=== PATIENT | female | born 1965 | race Caucasian/White ===

== ENCOUNTER 2021-09-29 13:02 | Emergency (ER) | payer MEDICARE ==
[~2021-09-29] VITALS: Ht 175.3 cm; Wt 113.0 kg
[2021-09-29] MEDS ORDERED: MORPHINE SULFATE 2 MG/ML INJ. IVP ONE (13:45)
[2021-09-29] MEDS ORDERED: ONDANSETRON PF 4 MG/2 ML VIAL. IVP ONE (13:45)
[2021-09-29] MEDS ORDERED: IV NORMAL SALINE 1000ML BAG 1,000 ML IV ONE (13:45)
[2021-09-29 14:04] LABS: BILIRUBIN,URINE NEGATIVE (NEG); CLARITY,URINE CLEAR; COLOR,URINE YELLOW; NITRITE,URINE NEGATIVE (NEG); PH,URINE 6.5 (<5.0-8.0); PROTEIN,URINE NEGATIVE (NEG-TRACE); UROBILINOGEN,URINE 0.2 mg/dL (0.2 mg/dL)
[2021-09-29 14:16] LABS: BACTERIA,URINE 0 /HPF (0-FEW); WBC,URINE 0 /HPF (0-4)
[2021-09-29 14:21] LABS: BASO # 0.1 x10^3/uL (0.0-0.2); BASO % 1 % (0-3); EOS # 0.4 x10^3/uL (0.0-0.7); EOS % 4 % (0-3); HEMATOCRIT 37.4 % (36.0-47.0); HEMOGLOBIN 12.4 g/dL (12.0-15.5); LYMPH # 1.5 x10^3/uL (1.0-4.8); LYMPH % 17 % (24-48); MEAN CORPUSCULAR HEMOGLOBIN 29 pg (25-35); MEAN CORPUSCULAR HGB CONC 33 g/dL (31-37); MEAN CORPUSCULAR VOLUME 87 fL (79-100); MONO # 0.7 x10^3/uL (0.0-1.1); MONO % 7 % (0-9); NEUT # 6.4 x10^3/uL (1.8-7.7); NEUT % 71 % (31-73); PLATELET COUNT 304 x10^3/uL (140-400); RED BLOOD COUNT 4.28 x10^6/uL (3.50-5.40); RED CELL DISTRIBUTION WIDTH 13.1 % (11.5-14.5)
[2021-09-29] MEDS ORDERED: CONTRAST GIVEN. MC PRN (14:30)
[2021-09-29] MEDS ORDERED: IOHEXOL 300 MG/ML 100ML VIAL. IV ONE (14:30)
[2021-09-29 14:39] LABS: CALCIUM 8.5 mg/dL (8.5-10.1); CREATININE 0.8 mg/dL (0.6-1.0); GFR 73.9; POTASSIUM 3.6 mmol/L (3.5-5.1)
[2021-09-29 14:47] LABS: ALBUMIN 3.7 g/dL (3.4-5.0); ALBUMIN/GLOBULIN RATIO 1.1 (1.0-1.7); TOTAL BILIRUBIN 0.5 mg/dL (0.2-1.0); TOTAL PROTEIN 7.2 g/dL (6.4-8.2)
--- NOTE | 2021-09-29 15:14 | PHYS DOC ---
Past Medical History Past Medical History: Anxiety, Constipation, Hypertension Past Surgical History: Cholecystectomy, Hysterectomy, Tubal ligation Smoking Status: Former Smoker Alcohol Use: None General Adult EDM: Chief Complaint: ABDOMINAL PAIN HPI: HPI: Patient is a 55 year old female with a history of anxiety, hypertension, constipation, who presents to the ED today complaining of a sharp intermittent left lower quadrant abdominal pain, symptoms began yesterday. Patient denies any nausea, vomiting or diarrhea. Reports last bowel movement was this morning and small. She states she is more concerned she could have diverticulitis, she states several family members have diverticulitis. Patient denies anything specifically exacerbating or relieving her symptoms. Review of Systems: Review of Systems: Constitutional: Denies fever or chills. [] Eyes: Denies change in visual acuity. [] HENT: Denies nasal congestion or sore throat. [] Respiratory: Denies cough or shortness of breath. [] Cardiovascular: Denies chest pain or edema. [] GI: Reports left lower quadrant abdominal pain, denies nausea, vomiting, bloody stools or diarrhea. [] : Denies dysuria. [] Musculoskeletal: Denies back pain or joint pain. [] Integument: Denies rash. [] Neurologic: Denies headache, focal weakness or sensory changes. [] [] Psychiatric: Denies depression or anxiety. [] Heart Score: C/O Chest Pain: N/A Risk Factors: Risk Factors: DM, Current or recent (<one month) smoker, HTN, HLP, family history of CAD, obesity. Risk Scores: Score 0 - 3: 2.5% MACE over next 6 weeks - Discharge Home Score 4 - 6: 20.3% MACE over next 6 weeks - Admit for Clinical Observation Score 7 - 10: 72.7% MACE over next 6 weeks - Early Invasive Strategies Current Medications: Current Medications Medications (Trade) Dose Ordered Sig/Mel Start Time Stop Time Status Last Admin Dose Admin Info (CONTRAST GIVEN -- Rx MONITORING) 1 each PRN DAILY PRN 09/29/21 14:30 10/01/21 14:29 Iohexol (Omnipaque 300 Mg/ml) 75 ml 1X ONCE 09/29/21 14:30 09/29/21 14:31 DC 09/29/21 14:58 75 ML Morphine Sulfate (Morphine Sulfate) 2 mg 1X ONCE 09/29/21 13:45 09/29/21 13:47 DC 09/29/21 14:14 2 MG Ondansetron HCl (Zofran) 4 mg 1X ONCE 09/29/21 13:45 09/29/21 13:47 DC 09/29/21 14:14 4 MG Sodium Chloride 1,000 ml @ 1,000 mls/hr 1X ONCE 09/29/21 13:45 09/29/21 14:44 DC 09/29/21 14:14 1,000 MLS/HR Allergies: Allergies: Allergies Coded Allergies Type Severity Reaction Last Updated Verified Sulfa (Sulfonamide Antibiotics) Allergy Intermediate UNKNOWN 09/29/21 Yes azithromycin Allergy Intermediate 09/29/21 Yes cortisone Allergy Intermediate UNKNOWN 09/29/21 Yes diphenhydramine Allergy Intermediate UNKNOWN 09/29/21 Yes fluticasone Allergy Intermediate UNKNOWN 09/29/21 Yes Physical Exam: PE: Constitutional: Well developed, well nourished, no acute distress, non-toxic appearance. [] HENT: Normocephalic, atraumatic, bilateral external ears normal, oropharynx moist, no oral exudates, nose normal. [] Eyes: PERRLA, EOMI, conjunctiva normal, no discharge. [] Neck: Normal range of motion, no tenderness, supple, no stridor. [] Cardiovascular:Heart rate regular rhythm, no murmur [] Lungs & Thorax: Bilateral breath sounds clear to auscultation [] Abdomen: Bowel sounds normal, soft, no right upper quadrant or right lower quadrant tenderness, mild tenderness to the left lower quadrant, no left upper quadrant tenderness, no masses, no pulsatile masses. [] Skin: Warm, dry, no erythema, no rash. [] Back: No tenderness, no CVA tenderness. [] Extremities: No tenderness, no cyanosis, no clubbing, ROM intact, no edema. [] Neurologic: Alert and oriented X 3, normal motor function, normal sensory function, no focal deficits noted. [] Psychologic: Affect normal, judgement normal, mood normal. [] Current Patient Data: Labs: Laboratory Tests Test 09/29/21 13:30 09/29/21 14:04 Urine Collection Type Unknown Urine Color Yellow Urine Clarity Clear Urine pH 6.5 (<5.0-8.0) Urine Specific [place] 1.010 (1.000-1.030) Urine Protein Negative mg/dL (NEG-TRACE) Urine Glucose (UA) Negative mg/dL (NEG) Urine Ketones (Stick) Negative mg/dL (NEG) Urine Blood Trace (NEG) Urine Nitrite Negative (NEG) Urine Bilirubin Negative (NEG) Urine Urobilinogen Dipstick 0.2 mg/dL (0.2 mg/dL) Urine Leukocyte Esterase Negative (NEG) Urine RBC 1-2 /HPF (0-2) Urine WBC 0 /HPF (0-4) Urine Squamous Epithelial Cells Mod /LPF Urine Bacteria 0 /HPF (0-FEW) White Blood Count 9.0 x10^3/uL (4.0-11.0) Red Blood Count 4.28 x10^6/uL (3.50-5.40) Hemoglobin 12.4 g/dL (12.0-15.5) Hematocrit 37.4 % (36.0-47.0) Mean Corpuscular Volume 87 fL (79-100) Mean Corpuscular Hemoglobin 29 pg (25-35) Mean Corpuscular Hemoglobin Concent 33 g/dL (31-37) Red Cell Distribution Width 13.1 % (11.5-14.5) Platelet Count 304 x10^3/uL (140-400) Neutrophils (%) (Auto) 71 % (31-73) Lymphocytes (%) (Auto) 17 % (24-48) L Monocytes (%) (Auto) 7 % (0-9) Eosinophils (%) (Auto) 4 % (0-3) H Basophils (%) (Auto) 1 % (0-3) Neutrophils # (Auto) 6.4 x10^3/uL (1.8-7.7) Lymphocytes # (Auto) 1.5 x10^3/uL (1.0-4.8) Monocytes # (Auto) 0.7 x10^3/uL (0.0-1.1) Eosinophils # (Auto) 0.4 x10^3/uL (0.0-0.7) Basophils # (Auto) 0.1 x10^3/uL (0.0-0.2) Sodium Level 139 mmol/L (136-145) Potassium Level 3.6 mmol/L (3.5-5.1) Chloride Level 101 mmol/L (98-107) Carbon Dioxide Level 30 mmol/L (21-32) Anion Gap 8 (6-14) Blood Urea Nitrogen 12 mg/dL (7-20) Creatinine 0.8 mg/dL (0.6-1.0) Estimated GFR (Cockcroft-Gault) 73.9 BUN/Creatinine Ratio 15 (6-20) Glucose Level 83 mg/dL (70-99) Calcium Level 8.5 mg/dL (8.5-10.1) Total Bilirubin 0.5 mg/dL (0.2-1.0) Aspartate Amino Transferase (AST) 16 U/L (15-37) Alanine Aminotransferase (ALT) 35 U/L (14-59) Alkaline Phosphatase 61 U/L (46-116) Total Protein 7.2 g/dL (6.4-8.2) Albumin 3.7 g/dL (3.4-5.0) Albumin/Globulin Ratio 1.1 (1.0-1.7) Lipase 72 U/L (73-393) L Laboratory Tests 09/29/21 14:04 Laboratory Tests 09/29/21 14:04 Vital Signs: Vital Signs Date Time Temp Pulse Resp B/P (MAP) Pulse Ox O2 Delivery O2 Flow Rate FiO2 09/29/21 14:38 78 173/77 (109) 100 Room Air 09/29/21 14:14 17 09/29/21 13:27 97.8 97.8 EKG: EKG: [] Radiology/Procedures: Radiology/Procedures: []PROCEDURE: CT ABD PELV W/ IV CONTRST ONLY EXAM: CT Abdomen and Pelvis with IV contrast CLINICAL HISTORY: LLQ pain COMPARISON: none TECHNIQUE: Helical CT of the abdomen and pelvis was performed following the administration of intravenous contrast. Axial, coronal and sagittal reformatted images were generated. PQRS compliance statement - One or more of the following individualized dose reduction techniques were utilized for this study: 1. Automated exposure control 2. Adjustment of the mA and/or kV according to patient size 3. Use of iterative reconstruction technique FINDINGS: Lower Chest: Linear opacities lung bases likely scarring/atelectasis. Abdomen and Pelvis: Hepatic hypoattenuation, fatty liver. Accounting for postcholecystectomy change, no biliary ductal dilatation. Pancreas, spleen and adrenal glands are unremarkable. Symmetric nephrograms. No focal renal lesion. No hydronephrosis. No hydronephrosis. No hydroureter. Bladder is unremarkable. Moderate colonic stool content is seen. There is infiltration about colonic diverticula in the distal descending colon. No small or large bowel dilatation. No bowel obstruction. Appendix is normal. Aorta is normal in caliber with atherosclerotic calcifications. No abdominal or pelvic lymphadenopathy. No free or loculated abdominal or pelvic collection. No free intraperitoneal gas. Bones: No aggressive osseous lesion. Mild L3-4, L4-5 and L5-S1 disc height loss. IMPRESSION: Acute left colon diverticulitis without evidence for perforation or free intraperitoneal gas. Hepatic hypoattenuation, fatty liver. Electronically signed by: Frantz Diop MD (09/29/2021 3:13 PM) [id number] DICTATED and SIGNED BY: FRANTZ DIOP MD DATE: 09/29/21 [id number] Course & Med Decision Making: Course & Med Decision Making Pertinent Labs and Imaging studies reviewed. (See chart for details) This is a 55-year-old female patient presenting to the ED today complaining of left lower quadrant pain, symptoms began yesterday. Patient is concerned she has diverticulitis and would like a diverticulitis work-up. She has a family history of diverticulitis but not personal history. Vitals in the ED temperature 97.8, heart rate 82, respiration 18 on room air, blood pressure 170/78, O2 sats 100% on room air. Patient's blood pressure has consistently stated in the 170s over 70s, she reports history of hypertension and is on medications, patient denies any chest pain, shortness of breath or headache, encourage her to check her blood pressures at home, if they stay high she needs to inform the PCP. CBC CMP lipase UA-negative for any acute findings CT of the abdomen and pelvis is noted for acute diverticulitis with no perforation or abscess Discharged on Augmentin. Follow-up with GI and PCP. She states her PCP was in the process of arranging a colonoscopy for her. Encouraged her to inform the PCP she has diverticulitis so they can follow-up Dragon Disclaimer: Evan Disclaimer: This electronic medical record was generated, in whole or in part, using a voice recognition dictation system. Departure Departure Impression: Primary Impression: Acute diverticulitis Disposition: HOME / SELF CARE / HOMELESS Condition: STABLE Referrals: GRACIELA PENA MD (PCP) followup next week Patient Instructions: Diverticulitis, [id number] Additional Instructions: You were evaluated in the emergency room and noted to have diverticulitis. Please take the prescribed antibiotics until completed. Please ensure you let your primary care doctor know you have diverticulitis so they can arrange for a colonoscopy through GI. Come back to the ED at any point symptoms worsen. Your blood pressure is also running high. Ensure you are taking your medicine, if the blood pressure continues to be high next week, let your primary care doctor know Scripts Ondansetron (ONDANSETRON ODT) 4 Mg Tab.rapdis 1 TAB PO PRN Q6-8HRS, #16 TAB Prov: SHAWNA KOCH CLINICAL ASST 09/29/21 Hydrocodone Bit/Acetaminophen (HYDROCODONE-APAP 5-325 ) 1 Tab Tablet 1 TAB PO PRN Q6HRS PRN for PAIN, #14 TAB 0 Refills Prov: SHAWNA KOCH CLINICAL ASST 09/29/21 Amoxicillin/Potassium Clav (AUGMENTIN 875-125 TABLET) 1 Each Tablet 1 TAB PO BID for 10 Days, #20 TAB 0 Refills Prov: SHAWNA KOCH CLINICAL ASST 09/29/21 SHAWNA KOCH CLINICAL ASST Sep 29, 2021 15:14
[2021-09-29] MEDS ORDERED: AMOXICILLIN/K CLAV 875/125MG TABLET. PO ONE (16:00)
[2021-09-29] MEDS ORDERED: HYDR-2761 PO (16:00)
[2021-09-29] MEDS ORDERED: ONDA4TAB12 PO (16:00)
[2021-09-29] MEDS ORDERED: AMOX1TAB61 PO (16:00)
[2021-09-29 16:08] VITALS: BP 161/80
== END 2021-09-29 16:20 | disposition home or self-care (01) ==
LOC: ER 13:02
DX: K57.92 Diverticulitis of intestine, part unspecified, without perforation or abscess without bleeding (principal); I10 Essential (primary) hypertension; Z87.891 Personal history of nicotine dependence; Z90.49 Acquired absence of other specified parts of digestive tract; Z90.710 Acquired absence of both cervix and uterus; Z98.51 Tubal ligation status; Z88.1 Allergy status to other antibiotic agents; Z88.2 Allergy status to sulfonamides; Z88.5 Allergy status to narcotic agent; Z88.8 Allergy status to other drugs, medicaments and biological substances
CPT/HCPCS: 36415; 74177; 80053; 81001; 83690; 85025; 96361; 96374; 96375; 99284; J2270; J2405; J7030; Q9967

== ENCOUNTER 2021-10-15 16:00 | Emergency (ER) | payer MEDICARE ==
[~2021-10-15] VITALS: Ht 175.3 cm; Wt 112.8 kg
[~2021-10-15 16:00] MED LIST: AMOX1TAB61 PO; HYDR-2761 PO; ONDA4TAB12 PO
[2021-10-15] MEDS ORDERED: KETOROLAC 30 MG/ML VIAL. ONE (16:44)
[2021-10-15] MEDS ORDERED: IV NORMAL SALINE 1000ML BAG 1,000 ML IV ONE (16:45)
[2021-10-15] MEDS ORDERED: KETOROLAC 15 MG/ML VIAL. IVP ONE (16:45)
[2021-10-15] MEDS ORDERED: ONDANSETRON PF 4 MG/2 ML VIAL. IVP ONE (16:45)
[2021-10-15] MEDS ORDERED: fentaNYL PF VIAL 100 MCG/2 ML VIAL IVP ONE (16:45)
[2021-10-15 16:50] LABS: BASO % 0 % (0-3); EOS # 0.5 x10^3/uL (0.0-0.7); EOS % 5 % (0-3); HEMATOCRIT 37.9 % (36.0-47.0); HEMOGLOBIN 12.5 g/dL (12.0-15.5); LYMPH # 2.9 x10^3/uL (1.0-4.8); LYMPH % 34 % (24-48); MEAN CORPUSCULAR HEMOGLOBIN 29 pg (25-35); MEAN CORPUSCULAR HGB CONC 33 g/dL (31-37); MEAN CORPUSCULAR VOLUME 87 fL (79-100); MONO # 0.6 x10^3/uL (0.0-1.1); MONO % 7 % (0-9); NEUT # 4.6 x10^3/uL (1.8-7.7); NEUT % 54 % (31-73); PLATELET COUNT 356 x10^3/uL (140-400); RED BLOOD COUNT 4.35 x10^6/uL (3.50-5.40); RED CELL DISTRIBUTION WIDTH 12.9 % (11.5-14.5); WHITE BLOOD COUNT 8.5 x10^3/uL (4.0-11.0)
[2021-10-15 16:52] LABS: BILIRUBIN,URINE NEGATIVE (NEG); CLARITY,URINE CLEAR; COLOR,URINE YELLOW; NITRITE,URINE NEGATIVE (NEG); PROTEIN,URINE NEGATIVE (NEG-TRACE); UROBILINOGEN,URINE 0.2 mg/dL (0.2 mg/dL)
[2021-10-15 17:06] LABS: WBC,URINE RARE /HPF (0-4)
[2021-10-15 17:07] LABS: BACTERIA,URINE 0 /HPF (0-FEW)
[2021-10-15] MEDS ORDERED: KETOROLAC 30 MG/ML VIAL. IVP ONE (17:15)
[2021-10-15 17:47] LABS: CALCIUM 8.2 mg/dL (8.5-10.1); CREATININE 0.8 mg/dL (0.6-1.0); GFR 73.9; POTASSIUM 3.6 mmol/L (3.5-5.1)
[2021-10-15 17:52] LABS: ALBUMIN 3.4 g/dL (3.4-5.0); ALBUMIN/GLOBULIN RATIO 0.9 (1.0-1.7); MAGNESIUM 2.1 mg/dL (1.8-2.4); TOTAL BILIRUBIN 0.2 mg/dL (0.2-1.0); TOTAL PROTEIN 7.2 g/dL (6.4-8.2)
--- NOTE | 2021-10-15 17:58 | PHYS DOC ---
Past Medical History Past Medical History: Anxiety, Constipation, Hypertension Past Surgical History: Cholecystectomy, Hysterectomy, Tubal ligation Smoking Status: Former Smoker Alcohol Use: None General Adult EDM: Chief Complaint: FLANK PAIN HPI: HPI: Patient is a 55 year old female who presents with right-sided flank pain that radiates into lower right side abdomen. Patient reports some nausea. Denies taking anything for pain prior to arrival. Patient denies pain with urination but feels like she has pressure when she urinates. Denies history of kidney stones. History of anxiety, constipation, hypertension. Review of Systems: Review of Systems: ROS At least 10 ROS systems have been reviewed and are negative except as documented in the HPI. Heart Score: C/O Chest Pain: No Risk Factors: Risk Factors: DM, Current or recent (<one month) smoker, HTN, HLP, family history of CAD, obesity. Risk Scores: Score 0 - 3: 2.5% MACE over next 6 weeks - Discharge Home Score 4 - 6: 20.3% MACE over next 6 weeks - Admit for Clinical Observation Score 7 - 10: 72.7% MACE over next 6 weeks - Early Invasive Strategies Current Medications: Current Medications Medications (Trade) Dose Ordered Sig/Mel Start Time Stop Time Status Last Admin Dose Admin Fentanyl Citrate (Fentanyl 2ml Vial) 50 mcg 1X ONCE 10/15/21 16:45 10/15/21 16:46 Cancel Ketorolac Tromethamine (Toradol 15mg Vial) 15 mg 1X ONCE 10/15/21 16:45 10/15/21 16:46 DC Ketorolac Tromethamine (Toradol 30mg Vial) 30 mg 1X ONCE 10/15/21 17:15 10/15/21 17:16 DC 10/15/21 17:12 30 MG Ondansetron HCl (Zofran) 4 mg 1X ONCE 10/15/21 16:45 10/15/21 16:46 DC 10/15/21 16:48 4 MG Sodium Chloride 1,000 ml @ 1,000 mls/hr 1X ONCE 10/15/21 16:45 10/15/21 17:44 10/15/21 16:46 1,000 MLS/HR Allergies: Allergies: Allergies Coded Allergies Type Severity Reaction Last Updated Verified Sulfa (Sulfonamide Antibiotics) Allergy Intermediate UNKNOWN 09/29/21 Yes azithromycin Allergy Intermediate 09/29/21 Yes cortisone Allergy Intermediate UNKNOWN 09/29/21 Yes diphenhydramine Allergy Intermediate UNKNOWN 09/29/21 Yes fluticasone Allergy Intermediate UNKNOWN 09/29/21 Yes Physical Exam: PE: Constitutional: Well developed, well nourished, no acute distress, non-toxic appearance. [] HENT: Normocephalic, atraumatic, bilateral external ears normal, oropharynx moist, no oral exudates, nose normal. [] Eyes: PERRLA, EOMI, conjunctiva normal, no discharge. [] Neck: Normal range of motion, no tenderness, supple, no stridor. [] Cardiovascular:Heart rate regular rhythm, no murmur [] Lungs & Thorax: Bilateral breath sounds clear to auscultation [] Abdomen: Bowel sounds normal, soft, right lower quadrant tenderness, no masses, no pulsatile masses. [] Skin: Warm, dry, no erythema, no rash. [] Back: No tenderness, right-sided CVA tenderness. [] Extremities: No tenderness, no cyanosis, no clubbing, ROM intact, no edema. [] Neurologic: Alert and oriented X 3, normal motor function, normal sensory function, no focal deficits noted. [] Psychologic: Affect normal, judgement normal, mood normal. [] Current Patient Data: Labs: Laboratory Tests Test 10/15/21 16:08 10/15/21 16:11 Urine Collection Type Unknown Urine Color Yellow Urine Clarity Clear Urine pH 6.0 (<5.0-8.0) Urine Specific [place] 1.020 (1.000-1.030) Urine Protein Negative mg/dL (NEG-TRACE) Urine Glucose (UA) Negative mg/dL (NEG) Urine Ketones (Stick) Negative mg/dL (NEG) Urine Blood Small (NEG) Urine Nitrite Negative (NEG) Urine Bilirubin Negative (NEG) Urine Urobilinogen Dipstick 0.2 mg/dL (0.2 mg/dL) Urine Leukocyte Esterase Negative (NEG) Urine RBC 6-10 /HPF (0-2) Urine WBC Rare /HPF (0-4) Urine Squamous Epithelial Cells Many /LPF Urine Bacteria 0 /HPF (0-FEW) Urine Mucus Mod /LPF White Blood Count 8.5 x10^3/uL (4.0-11.0) Red Blood Count 4.35 x10^6/uL (3.50-5.40) Hemoglobin 12.5 g/dL (12.0-15.5) Hematocrit 37.9 % (36.0-47.0) Mean Corpuscular Volume 87 fL (79-100) Mean Corpuscular Hemoglobin 29 pg (25-35) Mean Corpuscular Hemoglobin Concent 33 g/dL (31-37) Red Cell Distribution Width 12.9 % (11.5-14.5) Platelet Count 356 x10^3/uL (140-400) Neutrophils (%) (Auto) 54 % (31-73) Lymphocytes (%) (Auto) 34 % (24-48) Monocytes (%) (Auto) 7 % (0-9) Eosinophils (%) (Auto) 5 % (0-3) H Basophils (%) (Auto) 0 % (0-3) Neutrophils # (Auto) 4.6 x10^3/uL (1.8-7.7) Lymphocytes # (Auto) 2.9 x10^3/uL (1.0-4.8) Monocytes # (Auto) 0.6 x10^3/uL (0.0-1.1) Eosinophils # (Auto) 0.5 x10^3/uL (0.0-0.7) Basophils # (Auto) 0.0 x10^3/uL (0.0-0.2) Laboratory Tests 10/15/21 16:11 EKG: EKG: Sinus rhythm. Heart rate 67 bpm. [] Radiology/Procedures: Radiology/Procedures: []CT abdomen pelvis without contrast. HISTORY: Right flank pain CT abdomen pelvis was done without contrast. Lung bases are clear. There is no effusion. A liver lesion is not identified. The patient's had a cholecystectomy. Spleen and adrenal glands are normal. Pancreas is normal. There is no calculus or hydronephrosis in the left kidney. There is mild right hydronephrosis. Right ureter is mildly dilated. There is a 3 mm calculus at the right ureterovesical junction or just into the bladder. The bladder is mildly distended. Bowel pattern the abdomen is normal. Appendix is normal. There is no mild diverticulosis without diverticulitis. IMPRESSION: 1. 3 mm calculus at the right ureterovesical junction with mild right hyd ronephrosis. Course & Med Decision Making: Course & Med Decision Making Pertinent Labs and Imaging studies reviewed. (See chart for details) [] 55-year-old female presents with right-sided flank pain that radiates into her right lower abdomen. Denies dysuria. Afebrile. Work-up in ER consist of EKG, urinalysis, blood work, CT abdomen and pelvis. Pain and nausea treated in the ER. Patient given normal saline bolus. Patient states that her pain has improved. UA positive for blood. Negative for leukocytes and nitrates. Patient reports that pain has improved after medication was administered. CT abdomen and pelvis ordered to rule out kidney stone. CT abdomen pelvis shows 3 mm calculus at the right ureterovesical junction with mild right hydronephrosis. Discussed results with patient. I am sending patient home with pain medication, nausea medication, along with Flomax and a strainer to use when she urinates. Discussed return precautions with patient. Patient states that she understands discharge instructions. Patient states that she understands discharge instructions. Advised patient to call her PCP tomorrow to make a follow-up appointment. Evan Disclaimer: Evan Disclaimer: This electronic medical record was generated, in whole or in part, using a voice recognition dictation system. Departure Departure Impression: Primary Impression: Hydronephrosis, right Disposition: 01 HOME / SELF CARE / HOMELESS Condition: STABLE Referrals: GRACIELA PENA MD (PCP) Patient Instructions: Hydronephrosis Additional Instructions: You were seen in the emergency room for right-sided flank pain along with right lower abdominal pain. Your CT scan scan shows right hydronephrosis. You have a 3 mm stone. I am sending you home with pain medication, along with nausea medication and Flomax. Please return to emergency room with worsening symptoms or concerns. EMERGENCY DEPARTMENT GENERAL DISCHARGE INSTRUCTIONS Thank you for coming to [facility] Emergency Department (ED) today and trusting us with you care. We trust that you had a positive experience in our Emergency Department. If you wish to speak to the department management, you may call the Director at [phone]. YOUR FOLLOW UP INSTRUCTIONS ARE FOLLOWS: 1. Do you have a private Doctor? If you do not have a private doctor, please ask for a resource list of physicians or clinics that may be able to assist you with follow up care. 2. The Emergency Physicain has interpreted your x-rays. The X-Ray specialist will also review them. If there is a change in the findings, you will be notified in 48 hours when at all possible. 3. A lab test or culture has been done, your results will be reviewed and you will be notified if you need a change in treatment. ADDITIONAL INSTRUCTIONS AND INFORMATION: 1. Your care today has been supervised by a physician who is specially trained in emergency care. Many problems require more than one evaluation for a complete diagnosis and treatment. We recommend that you schedule your follow up appointment as recommended to ensure complete treatment of you illness or injury. If you are unable to obtain follow up care and continue to have a problem, or if your condition worsens, we recommend that you return to the ED. 2. We are not able to safely determine your condition over the phone nor are we able to give sound medical advice over the phone. For these safety reasons, if you call for medical advice we will ask you to come to the ED for further evaluation. 3. If you have any questions regarding these discharge instructions please call the ED at [phone]. SAFETY INFORMATION: In the interest of safety, wellness, and injury prevention; we encourage you to wear your sealbelt, if you smoke; quite smoking, and we encourage family to use a protective helmet for bicycling and other sporting events that present an increased risk for head injury. IF YOUR SYMPTOMS WORSEN OR NEW SYMPTOMS DEVELOP, OR YOU HAVE CONCERNS ABOUT YOUR CONDITION; OR IF YOUR CONDITION WORSENS WHILE YOU ARE WAITING FOR YOUR FOLLOW UP APPOINTMENT; EITHER CONTACT YOUR PRIMARY CARE DOCTOR, THE PHYSICIAN WHOSE NAME AND NUMBER YOU WERE GIVEN, OR RETURN TO THE ED IMMEDIATELY. Scripts Hydrocodone Bit/Acetaminophen (HYDROCODONE-APAP 5-325 ) 1 Tab Tablet 1 TAB PO PRN Q6HRS PRN for PAIN for 3 Days, #10 TAB 0 Refills Prov: VAHID ASTUDILLO [employer] PROGRAM MANAGER 10/15/21 Tamsulosin Hcl (FLOMAX) 0.4 Mg Cap.er.24h 1 CAP PO DAILY for kidney stone for 7 Days, #7 CAP 0 Refills Prov: VAHID ASTUDILLO [employer] PROGRAM MANAGER 10/15/21 VAHID ASTUDILLO APRN Oct 15, 2021 17:58
--- NOTE | 2021-10-15 18:17 | EKG ---
[facility] [address] [place] [address] Test Date: 2021-10-15 Test Time: 17:15:07 Pat Name: MAL BARRGIA Department: Room: Gender: F Software Engineering Analyst: : [id number] Requested By: VAHID ASTUDILLO Order Number: [id number] Reading MD: Measurements Intervals [place] Rate: 67 P: 56 [place]: 144 QRS: -2 QRSD: 86 T: 62 QT: 452 QTc: 481 Interpretive Statements SINUS RHYTHM LEFTWARD AXIS PROLONGED QT NO SPECIFIC ECG ABNORMALITIES RI6.02 No previous ECG available for comparison
--- NOTE | 2021-10-15 18:52 | RAD ---
CT abdomen pelvis without contrast. HISTORY: Right flank pain CT abdomen pelvis was done without contrast. Lung bases are clear. There is no effusion. A liver lesi on is not identified. The patient's had a cholecystectomy. Spleen and adrenal glands are normal. Panc reas is normal. There is no calculus or hydronephrosis in the left kidney. There is mild right hydron ephrosis. Right ureter is mildly dilated. There is a 3 mm calculus at the right ureterovesical juncti on or just into the bladder. The bladder is mildly distended. Bowel pattern the abdomen is normal. Ap pendix is normal. There is no mild diverticulosis without diverticulitis. IMPRESSION: 1. 3 mm calculus at the right ureterovesical junction with mild right hydronephrosis. PQRS Compliance Statement: One or more of the following individualized dose reduction techniques were utilized for this examinat ion: 1. Automated exposure control 2. Adjustment of the mA and/or kV according to patient size 3. Use of iterative reconstruction technique Electronically signed by: Aquilino Arzate MD (10/15/2021 6:50 PM) [facility]
[2021-10-15] MEDS ORDERED: HYDR-2761 PO (19:22)
[2021-10-15] MEDS ORDERED: TAMS0.4C97 PO (19:22)
[2021-10-15 20:30] VITALS: BP 151/68
== END 2021-10-15 20:31 | disposition home or self-care (01) ==
LOC: ER 16:00
DX: N13.2 Hydronephrosis with renal and ureteral calculous obstruction (principal); I10 Essential (primary) hypertension; Z87.891 Personal history of nicotine dependence; Z90.49 Acquired absence of other specified parts of digestive tract; Z90.710 Acquired absence of both cervix and uterus; Z98.51 Tubal ligation status; Z88.1 Allergy status to other antibiotic agents; Z88.5 Allergy status to narcotic agent; Z88.8 Allergy status to other drugs, medicaments and biological substances
CPT/HCPCS: 36415; 74176; 80053; 81001; 83690; 83735; 85025; 93005; 96361; 96374; 96375; 99284; J1885; J2405; J7030

== ENCOUNTER → 2021-11-23 | Day surgery (SDC) | payer MEDICARE ==
[~2021-11-23] VITALS: Ht 172.7 cm; Wt 111.8 kg
[~2021-11-23] MED LIST changes: +CETI10TA16 PO; +DULO60CA7 PO; +HYDROmorphone 2 MG/ML INJ. IVP PRN; +IV RINGERS,LACTATED 1000ML 1,000 ML IV SCH; +LIDOCAINE 2% PF 5 ML VIAL. ONE; +LOSA100T14 PO; +MORPHINE SULFATE 2 MG/ML INJ. IVP PRN; +PROCHLORPERAZINE 10 MG/2 ML VIAL. IVP PRN; +PROPOFOL 10 MG/ML (20ML) VIAL. IV ONE; +TAMS0.4C97 PO; +fentaNYL PF VIAL 100 MCG/2 ML VIAL IVP PRN
[2021-11-23 06:22] VITALS: BP 151/66
[2021-11-23 07:55] VITALS: BP 103/55
--- NOTE | 2021-11-23 12:08 | HP ---
DATE OF SERVICE: 11/23/2021 ADMIT DATE: 11/23/2021 UPDATED HISTORY AND PHYSICAL. REFERRING PHYSICIAN: Dr. Nathanael Renteria. REASON: History of polyps. HISTORY: A 56-year-old female whose past medical history is significant for hypertension as well as diverticulosis, colonic polyps, irritable bowel syndrome, seen for interval colonoscopy. Previous exam was performed in 2016 which revealed adenomatous polyps. Stools presently are formed. There is no family history of colon cancer. Occasional constipation is encountered. Weight and appetite are stable. No melena and/or hematochezia has been noted. She has recently completed her antibiotics for resolving diverticulitis, here for interval exam. PAST MEDICAL HISTORY: Diverticulitis, colonic polyps, hypertension, gastroesophageal reflux disease. ALLERGIES: SULFA. MEDICATIONS: , Cymbalta, losartan, ondansetron. FAMILY HISTORY: Significant for breast cancer with sister, colon polyps with father, father and brother had OH, hypertension in father and sister, cerebrovascular accident as a child. SOCIAL HISTORY: She is a nondrinker, former smoker. PAST SURGICAL HISTORY: Cholecystectomy, hysterectomy, tubal ligation. REVIEW OF SYSTEMS: Per records. PHYSICAL EXAMINATION: GENERAL: Reveals a well-nourished, well-developed female who is alert, cooperative, in no acute distress. VITAL SIGNS: Temperature is 97.5, pulse 82, respiratory rate 14. LUNGS: Clear. CARDIOVASCULAR: Reveals an S1, S2, without S3, S4 or appreciable murmur. ABDOMEN: Reveals a soft abdomen, normal bowel sounds, without appreciable hepatosplenomegaly. IMPRESSION: History of colonic polyps as well as resolving diverticulitis. Interval colonoscopy is recommended. Risks and benefits of procedure have been discussed previously. The patient is willing to proceed at this time. MUNA DR: Donald TID: [id number]
== END | disposition home or self-care (01) ==
LOC: ENDOS 06:02
PROVIDERS: ATTEND Internal Medicine Gastroenterology
DX: Z12.11 Encounter for screening for malignant neoplasm of colon (principal); K64.0 First degree hemorrhoids; K57.30 Diverticulosis of large intestine without perforation or abscess without bleeding; K63.89 Other specified diseases of intestine; I10 Essential (primary) hypertension; K21.9 Gastro-esophageal reflux disease without esophagitis; F41.9 Anxiety disorder, unspecified; Z86.010 Personal history of colon polyps; Z90.710 Acquired absence of both cervix and uterus; Z90.49 Acquired absence of other specified parts of digestive tract; Z98.890 Other specified postprocedural states; Z87.891 Personal history of nicotine dependence; Z80.3 Family history of malignant neoplasm of breast; Z82.49 Family history of ischemic heart disease and other diseases of the circulatory system; Z83.3 Family history of diabetes mellitus; Z98.51 Tubal ligation status; Z88.2 Allergy status to sulfonamides; Z88.1 Allergy status to other antibiotic agents; Z88.8 Allergy status to other drugs, medicaments and biological substances; Z20.822 Contact with and (suspected) exposure to COVID-19
CPT/HCPCS: 87426; G0105; J2704; 45378

== ENCOUNTER → 2021-11-27 | Outpatient (CLI) | payer MEDICARE ==
[2021-11-23 07:55] VITALS: BP 103/55
[~2021-11-27] MED LIST changes: -HYDROmorphone 2 MG/ML INJ. IVP PRN; -IV RINGERS,LACTATED 1000ML 1,000 ML IV SCH; -LIDOCAINE 2% PF 5 ML VIAL. ONE; -MORPHINE SULFATE 2 MG/ML INJ. IVP PRN; -PROCHLORPERAZINE 10 MG/2 ML VIAL. IVP PRN; -PROPOFOL 10 MG/ML (20ML) VIAL. IV ONE; -fentaNYL PF VIAL 100 MCG/2 ML VIAL IVP PRN
--- NOTE | 2021-11-27 12:04 | CARD ---
MR#: [id number] Date of Study: 11/27/2021 Ordering Physician: MIGUELANGEL AVALOS, Referring Physician: MIGUELANGEL AVALOS, Tech: William Suarez [facility] APPROVED REPORT EXAM: Two-dimensional and M-mode echocardiogram with Doppler and color Doppler. Other Information Quality : FairHR: 63bpm Rhythm : PVC's INDICATION Palpitations RISK FACTORS Hypertension Obesity 2D DIMENSIONS Left Atrium(2D)4.1 (1.6-4.0cm)IVSd1.5 (0.7-1.1cm) Aortic Root(2D)3.1 (2.0-3.7cm)LVDd5.2 (3.9-5.9cm) PWd1.4 (0.7-1.1cm)LVDs3.4 (2.5-4.0cm) FS (%) 34.2 %SV81.9 ml LVEF(%)62.7 (>50%) Aortic Valve AoV Peak Kennedy.114.3cm/sAoV VTI23.1cm AO Peak GR.5.2mmHgLVOT Peak Kennedy.78.2cm/s LVOT VTI 16.91cmAO Mean GR.3mmHg Mitral Valve MV E Zocjtlnr09.6cm/sMV DECEL KOTM767as MV A Iphvuibu65.5cm/sMV E Mean Gr.1mmHg MV SGZ22goV/A Ratio0.9 MVA (PHT)3.52cm2 TDI E/Lateral E'9.9E/Medial E'12.4 Pulmonary Valve PV Peak Vvmxxxct07.6cm/sPV Peak Grad.4mmHg Tricuspid Valve TR P. Vwelwghs647ms/sTR Peak Gr.21mmHg Pulmonary Vein S1 Bhaxfaok69.1cm/sD2 Gnzzpshp33.7cm/s LEFT VENTRICLE The left ventricle is normal size. There is mild to moderate concentric left ventricular hypertrophy. The left ventricular systolic function is normal. The ejection fraction is 55-60%. There is normal L V segmental wall motion. Transmitral Doppler flow pattern is Grade I-abnormal relaxation pattern. No left ventricle thrombus noted on this study. There is no ventricular septal defect visualized. There is no left ventricular aneurysm. There is no mass noted in the left ventricle. RIGHT VENTRICLE The right ventricle is normal size. There is normal right ventricular wall thickness. The right ventr icular systolic function is normal. ATRIA The left atrium is mildly dilated. The right atrium size is normal. The interatrial septum is intact with no evidence for an atrial septal defect or patent foramen ovale as noted on 2-D or Doppler imagi ng. AORTIC VALVE The aortic valve is normal in structure and function. Doppler and Color Flow revealed no significant aortic regurgitation. There is no significant aortic valvular stenosis. There is no aortic valvular v egetation. MITRAL VALVE The mitral valve is normal in structure and function. There is no evidence of mitral valve prolapse. There is no mitral valve stenosis. Doppler and Color-flow revealed mild mitral regurgitation. TRICUSPID VALVE Trace tricuspid regurgitation. The pulmonary artery systolic pressure is estimated at 35 mmHg. There is no tricuspid valve stenosis. PULMONIC VALVE The pulmonary valve is normal in structure and function. Doppler and Color Flow revealed no pulmonic valvular regurgitation. There is no pulmonic valvular stenosis. GREAT VESSELS The aortic root is normal in size. The ascending aorta is normal in size. The pulmonary artery is nor mal. The IVC is normal in size and collapses >50% with inspiration. PERICARDIAL EFFUSION There is no pleural effusion. There is no evidence of significant pericardial effusion. Critical Notification Critical Value: No <Conclusion> The left ventricular systolic function is normal. The ejection fraction is 55-60%. There is normal LV segmental wall motion. Transmitral Doppler flow pattern is Grade I-abnormal relaxation pattern. Mild mitral regurgitation. Trace tricuspid regurgitation. The pulmonary artery systolic pressure is estimated at 35 mmHg. There is no evidence of significant pericardial effusion. Signed by : Valentin Anna, Electronically Approved : 11/27/2021 12:04:10
== END ==
LOC: ECHO 07:45
PROVIDERS: ATTEND Internal Medicine Cardiovascular Disease
DX: I34.0 Nonrheumatic mitral (valve) insufficiency (principal); I51.7 Cardiomegaly; R00.2 Palpitations
CPT/HCPCS: 93306; C8929